=== PATIENT | female | born 1985 | race Caucasian/White ===

== ENCOUNTER 2016-07-07 | Outpatient (CLI) | payer MEDICAID | END 2016-07-07 20:22 | disposition critical access hospital (66) | DX: R45.851 Suicidal ideations (principal) | CPT/HCPCS: A0425; A0429 ==

== ENCOUNTER 2016-07-07 20:50 | Emergency (ER) | payer MEDICAID | END 2016-07-08 00:40 | disposition home or self-care (01) | DX: F32.9 Major depressive disorder, single episode, unspecified (principal); R45.851 Suicidal ideations; F41.9 Anxiety disorder, unspecified ==